=== PATIENT | male | born 1995 ===

== ENCOUNTER 2021-05-24 17:30 | Emergency (ER) | payer OTHER ==
[~2021-05-24] VITALS: Ht 170.2 cm; Wt 108.9 kg
[2021-05-24 22:23] VITALS: BP 150/79
== END 2021-05-24 21:35 | disposition home or self-care (01) ==
LOC: ER 17:30
DX: S13.4XXA Sprain of ligaments of cervical spine, initial encounter (principal); S30.1XXA Contusion of abdominal wall, initial encounter; E66.9 Obesity, unspecified; Z68.37 Body mass index [BMI] 37.0-37.9, adult; V49.49XA Driver injured in collision with other motor vehicles in traffic accident, initial encounter; Y93.89 Activity, other specified; Y92.488 Other paved roadways as the place of occurrence of the external cause; Y99.8 Other external cause status
CPT/HCPCS: 72040